=== PATIENT | male | born 1955 | race Caucasian/White ===

== ENCOUNTER 2021-01-27 21:24 | Inpatient (IN) ==
[2021-01-28 00:35] LABS: Basophils # 0.1 K/mcL (0.0-0.2); Basophils % 1.1 %; Eosinophils # 0.2 K/mcL (0.0-0.6); Eosinophils % 2.8 %; Hematocrit 35.8 % (37.5-50.1); Hemoglobin 11.8 g/dL (12.9-16.9); Immature Granulocytes % 0.5 % (0-4); Lymphocytes # 1.8 K/mcL (0.6-4.6); Lymphocytes % 22.3 %; Mean Corpuscular Hemoglobin 30.2 pg (28.0-33.3); Mean Corpuscular Volume 91.6 fL (83.0-100.0); Mean Platelet Volume 9.5 fL (9.4-12.4); Monocytes # 0.5 K/mcL (0.0-1.3); Monocytes % 6.6 %; Neutrophils # 5.3 K/mcL (1.6-8.9); Platelet Count 359 K/mcL (140-400); Red Blood Count 3.91 M/mcL (4.19-5.50); Red Cell Distribution Width 13.4 % (11.5-14.5); Segmented Neutrophils % 66.7 %; White Blood Count 7.9 K/mcL (4.3-11.1)
[2021-01-28 00:51] LABS: BUN/Creatinine Ratio 20 (6-26); Blood Urea Nitrogen 11 mg/dL (8-23); Calcium 8.6 mg/dL (8.6-10.3); Carbon Dioxide 25 mEq/L (23-29); Chloride 106 mEq/L (98-107); Glucose 85 mg/dL (70-105); Magnesium 1.6 mg/dL (1.6-2.6); Osmolality,Calculated 289 (280-300); Potassium 3.6 mEq/L (3.5-5.1); Sodium 140 mEq/L (136-145); Troponin I < 0.03 ng/mL (< 0.04); eGFR For African Americans > 60 (> 60); eGFR For Non-African Americans > 60 (> 60)
[2021-01-28 01:05] LABS: Thyroid Stimulating Hormone 5.785 mcIU/mL (0.340-5.600)
[2021-01-28 04:40] LABS: Amphetamine Screen,Urine Negative ng/mL (Cutoff=1000); Barbiturate Screen,Urine Negative ng/mL (Cutoff=200); Benzodiazepines Screen,Urine Negative ng/mL (Cutoff=200); Cannabinoid Screen,Urine Negative ng/mL (Cutoff = 50); Cocaine Screen,Urine Negative ng/mL (Cutoff= 300); Opiate Screen,Urine Negative ng/mL (Cutoff=300); Phencyclidine Screen,Urine Negative ng/mL (Cutoff=25)
[2021-01-28 05:09] LABS: Influenza A PCR Negative (Negative); Influenza B PCR Negative (Negative); Resp. Syncytial Virus PCR Negative (Negative)
[2021-01-28 05:15] LABS: SARS-CoV-2 by PCR (In House) Negative (Negative)
[2021-01-28] MEDS ORDERED: Ondansetron 4 MG/2 ML VIAL IVP PRN (05:36)
[2021-01-28] MEDS ORDERED: Naloxone 0.4 MG/ML INJ IVP PRN (05:36)
[2021-01-28] MEDS ORDERED: Ipratropium/Albuterol Neb 3 ML IH PRN (05:38)
[2021-01-28] MEDS ORDERED: levoFLOXacin 750 MG/150 ML 750 MG/150 ML BAG IVPB ONE (05:39)
[2021-01-28] MEDS ORDERED: Perflutren Lipid Microsphere 1.3 ML in 0.9 % Sodium Chloride 8.7 ML IVP PRN (05:42)
[2021-01-28] MEDS ORDERED: *HR* LORazepam 2 MG/ML VIAL IVP PRN ×2 (06:34)
[2021-01-28 07:00] LABS: INR 1.2; Prothrombin Time 13.2 Seconds (9.4-12.1)
[2021-01-28 07:10] LABS: Albumin 3.8 g/dL (3.5-5.7); Albumin/Globulin Ratio 1.1 (1.1-2.2); Bilirubin,Direct 0.2 mg/dL (0.0-0.2); Bilirubin,Indirect 0.6 mg/dL (0.0-1.0); Bilirubin,Total 0.8 mg/dL (0.3-1.0); Globulin 3.6 g/dL (2.4-3.5); Total Protein 7.4 g/dL (6.4-8.9)
[2021-01-28 07:16] LABS: Chol/HDL Ratio 2.5 (0-4.9); Cholesterol 158 mg/dL (< 200); HDL Cholesterol 63 mg/dL (40-59); LDL Cholesterol,Calculated 79 mg/dL (< 100); Magnesium 1.6 mg/dL (1.6-2.6); Triglycerides 78 mg/dL (< 150); Troponin I < 0.03 ng/mL (< 0.04)
[2021-01-28] MEDS ORDERED: Isovue-370 500 ML BOTTLE IVP ONE (08:52)
[2021-01-28 10:41] LABS: Bacteria,Urine Few per hpf (None-Few); Bilirubin,Urine Negative (Negative); Blood,Urine Negative (Negative); Clarity,Urine Clear (Clear); Color,Urine Light-Yellow (Yellow); Glucose,Urine (UA) Normal (Normal); Ketones,Urine 10 mg/dL (Negative); Leukocyte Esterase,Urine Negative (Negative); Mucus,Urine Few per lpf (None-Few); Nitrite,Urine Negative (Negative); Protein,Urine 30 mg/dL (Neg-Trace); RBC,Urine 0-3 per hpf (0-3); Specific Gravity,Urine 1.022 (1.010-1.025); Squamous Epithelial Cell,Urine Few per hpf (None-Few); Urobilinogen,Urine Normal (Normal); WBC,Urine 0-3 per hpf (0-3)
[2021-01-28] MEDS: Acetaminophen 325 MG TABLET PO PRN (12:11)
[2021-01-28] MEDS ORDERED: Tuberculin Skin Test (PPD) 5 UNIT/0.1 ML VIAL ID ONE (14:32)
[2021-01-28] MEDS ORDERED: *HR* Rivaroxaban 10 MG TABLET PO SCH (17:00)
[2021-01-28] MEDS: Thiamine (B-1) 100 MG, Folic Acid 1 MG, MVI, adult with vitamin K 10 ML in 0.9 % Sodi... IVPB SCH (18:15)
[2021-01-28] MEDS: Budesonide/Formoterol 80/4.5 1 PUFF INH IH SCH (20:59)
[2021-01-28] MEDS: Piperacillin/Tazobactam 3.375 GM in 0.9 % Sodium Chloride Mini Bag 100 ML IVPB SCH (21:49)
[2021-01-29 01:33] LABS: Basophils # 0.1 K/mcL (0.0-0.2); Basophils % 0.7 %; Eosinophils # 0.2 K/mcL (0.0-0.6); Eosinophils % 2.2 %; Hematocrit 38.3 % (37.5-50.1); Hemoglobin 12.5 g/dL (12.9-16.9); Immature Granulocytes % 0.6 % (0-4); Lymphocytes # 1.3 K/mcL (0.6-4.6); Lymphocytes % 13.3 %; Mean Corpuscular HGB Conc 32.6 g/dL (31.6-35.5); Mean Corpuscular Volume 91.8 fL (83.0-100.0); Mean Platelet Volume 9.7 fL (9.4-12.4); Monocytes # 0.7 K/mcL (0.0-1.3); Neutrophils # 7.4 K/mcL (1.6-8.9); Platelet Count 340 K/mcL (140-400); Red Blood Count 4.17 M/mcL (4.19-5.50); Red Cell Distribution Width 13.1 % (11.5-14.5); Segmented Neutrophils % 76.2 %; White Blood Count 9.7 K/mcL (4.3-11.1)
[2021-01-29 01:57] LABS: BUN/Creatinine Ratio 19 (6-26); Blood Urea Nitrogen 11 mg/dL (8-23); Calcium 8.8 mg/dL (8.6-10.3); Carbon Dioxide 26 mEq/L (23-29); Chloride 101 mEq/L (98-107); Glucose 85 mg/dL (70-105); Osmolality,Calculated 281 (280-300); Potassium 3.8 mEq/L (3.5-5.1); Sodium 136 mEq/L (136-145); eGFR For African Americans > 60 (> 60); eGFR For Non-African Americans > 60 (> 60)
[2021-01-29] MEDS: Piperacillin/Tazobactam 3.375 GM in 0.9 % Sodium Chloride Mini Bag 100 ML IVPB SCH ×4 (05:25→23:30)
[2021-01-29] MEDS: Levothyroxine 25 MCG TABLET PO SCH (05:26)
[2021-01-29] MEDS: amLODIPine 5 MG TABLET PO SCH (08:26)
[2021-01-29] MEDS: Acetaminophen 325 MG TABLET PO PRN (08:30)
[2021-01-29 09:14] LABS: INR 1.3; Prothrombin Time 14.3 Seconds (9.4-12.1)
[2021-01-29] MEDS ORDERED: *HR* LORazepam 2 MG/ML VIAL IVP PRN (10:50)
[2021-01-29 10:54] LABS: Hepatitis B Surface Antigen Nonreactive (Nonreactive)
[2021-01-29 11:22] LABS: HIV-1&2 Antibody & p24 Ag Nonreactive (Nonreactive)
[2021-01-29 11:25] LABS: Hepatitis A Antibody IgM Nonreactive (Nonreactive); Hepatitis B Core IgM Nonreactive (Nonreactive)
[2021-01-29 11:27] LABS: Hepatitis C Virus Antibody Nonreactive (Nonreactive)
[2021-01-29] MEDS: Tiotropium 10 INH DOSE IH SCH (11:37)
[2021-01-29] MEDS: Budesonide/Formoterol 80/4.5 1 PUFF INH IH SCH ×2 (11:37→20:23)
[2021-01-29] MEDS ORDERED: Ondansetron 4 MG/2 ML VIAL ONE (12:32)
[2021-01-29] MEDS ORDERED: Lidocaine -MPF 2% 5 ML VIAL ONE (12:32)
[2021-01-29] MEDS ORDERED: Lidocaine HCL 4 ML Topical Solution (Laryng-O-Jet Kit Sterile Pak) TP ONE (12:32)
[2021-01-29] MEDS ORDERED: *HR* Succinylcholine 200 MG/10 ML VIAL IVP ONE (12:32)
[2021-01-29] MEDS ORDERED: *HR* FentaNYL (PF) 100 MCG/2 ML VIAL ONE (12:32)
[2021-01-29] MEDS ORDERED: *HR* Midazolam HCl 2 MG/2 ML VIAL ONE (12:32)
[2021-01-29] MEDS ORDERED: *HR* Propofol 200 MG/20 ML VIAL IVP ONE (12:33)
[2021-01-29 17:02] LABS: Source of Body Fluid LUL
[2021-01-29 17:02] LABS: Source of Body Fluid LUL BAL 2
[2021-01-29 17:56] LABS: Appearance of Body Fluid Hazy (Clear); Volume of Body Fluid 10 mL
[2021-01-29 17:58] LABS: Appearance of Body Fluid Hazy (Clear); Volume of Body Fluid 10 mL
[2021-01-29] MEDS: Thiamine (B-1) 100 MG, Folic Acid 1 MG, MVI, adult with vitamin K 10 ML in 0.9 % Sodi... IVPB SCH (18:31)
[2021-01-29] MEDS: *HR* Heparin 5,000 UNIT/ML VIAL SQ SCH (18:31)
[2021-01-30 03:20] LABS: Basophils % 0.2 %; Hemoglobin 11.7 g/dL (12.9-16.9); Immature Granulocytes % 0.3 % (0-4); Lymphocytes # 0.6 K/mcL (0.6-4.6); Lymphocytes % 5.4 %; Mean Corpuscular HGB Conc 32.5 g/dL (31.6-35.5); Mean Corpuscular Hemoglobin 29.8 pg (28.0-33.3); Mean Corpuscular Volume 91.8 fL (83.0-100.0); Mean Platelet Volume 9.9 fL (9.4-12.4); Monocytes # 0.4 K/mcL (0.0-1.3); Monocytes % 3.1 %; Neutrophils # 10.5 K/mcL (1.6-8.9); Platelet Count 336 K/mcL (140-400); Red Blood Count 3.92 M/mcL (4.19-5.50); Red Cell Distribution Width 13.2 % (11.5-14.5); White Blood Count 11.5 K/mcL (4.3-11.1)
[2021-01-30 03:41] LABS: BUN/Creatinine Ratio 16 (6-26); Blood Urea Nitrogen 14 mg/dL (8-23); Carbon Dioxide 26 mEq/L (23-29); Chloride 102 mEq/L (98-107); Glucose 232 mg/dL (70-105); Magnesium 1.7 mg/dL (1.6-2.6); Osmolality,Calculated 290 (280-300); Phosphorous 3.3 mg/dL (2.7-4.5); Potassium 4.1 mEq/L (3.5-5.1); Sodium 136 mEq/L (136-145); eGFR For African Americans > 60 (> 60); eGFR For Non-African Americans > 60 (> 60)
[2021-01-30] MEDS: *HR* Heparin 5,000 UNIT/ML VIAL SQ SCH ×2 (05:25→17:44)
[2021-01-30] MEDS: Levothyroxine 25 MCG TABLET PO SCH (05:25)
[2021-01-30] MEDS: Acetaminophen 325 MG TABLET PO PRN (07:29)
[2021-01-30] MEDS: Piperacillin/Tazobactam 3.375 GM in 0.9 % Sodium Chloride Mini Bag 100 ML IVPB SCH (07:29)
[2021-01-30] MEDS: amLODIPine 5 MG TABLET PO SCH (07:30)
[2021-01-30] MEDS: Tiotropium 10 INH DOSE IH SCH (10:56)
[2021-01-30] MEDS: Budesonide/Formoterol 80/4.5 1 PUFF INH IH SCH ×2 (10:56→20:25)
[2021-01-30] MEDS: Thiamine (B-1) 100 MG, Folic Acid 1 MG, MVI, adult with vitamin K 10 ML in 0.9 % Sodi... IVPB SCH (17:45)
[2021-01-31] MEDS: Acetaminophen 325 MG TABLET PO PRN (05:28)
[2021-01-31] MEDS: Levothyroxine 25 MCG TABLET PO SCH (05:28)
[2021-01-31] MEDS: *HR* Heparin 5,000 UNIT/ML VIAL SQ SCH ×2 (05:29→11:22)
[2021-01-31] MEDS: Tiotropium 10 INH DOSE IH SCH (07:20)
[2021-01-31] MEDS: Budesonide/Formoterol 80/4.5 1 PUFF INH IH SCH (07:21)
[2021-01-31 07:23] VITALS: O2SAT 94
[2021-01-31 07:27] VITALS: BP 132/87; PULSE 76; TEMP 98.7
[2021-01-31] MEDS: amLODIPine 5 MG TABLET PO SCH (08:07)
[2021-01-31] MEDS ORDERED: Aspirin Enteric Coated 81 MG Tablet PO SCH (09:00)
[2021-01-31] MEDS ORDERED: FLU Vac QV 21-22 (6Month+)/PF 0.5 ML SYRINGE IM ONE (10:52)
[2021-01-31 14:30] LABS: A.galactomannan Ag Index 0.04
[2021-02-03 08:43] LABS: QuantiFERON Mitogen minus NIL 9.52 IU/mL
[2021-02-03 09:23] LABS: QuantiFERON NIL 0.03 IU/mL; QuantiFERON-TB Gold In-Tube NEGATIVE (Negative)
[2021-02-03 10:07] LABS: Histoplasma spp.Ab by ID NONE DETECTED (None Detected)
== END 2021-01-31 14:02 | disposition home or self-care (01) | DRG 167 ==
LOC: EMEROOARM 21:24 → 2ANU 21:24 → SUATTDRO 01-28 05:40 → 2ANU 01-28 05:44
PROVIDERS: ADMIT Internal Medicine; ATTEND Internal Medicine
PROC: ENDOLBX (2021-01-29 11:30)